=== PATIENT | female | born 1985 | race Caucasian/White ===

== ENCOUNTER 2017-08-19 17:52 | Emergency (ER) | payer OTHER ==
[2017-08-19] MEDS ORDERED: KETOROLAC 30 MG/ML INJ ONE (19:26)
[2017-08-19 19:55] LABS: Urine Blood NEGATIVE (NEG); Urine Glucose NEGATIVE (NEG); Urine Protein NEGATIVE (NEG); Urine Specific Gravity >1.030 (1.005-1.030)
[2017-08-19 20:02] LABS: Absolute Lymphocytes (CBC) 3.2 K/uL (0.7-4.9); Absolute Monocytes 0.7 K/uL (0.1-1.3); Absolute Neutrophil 5.6 K/uL (1.8-8.0); Basophils % 1.4 % (0-1.3); Eosinophils % 2.8 % (0-4.4); Hematocrit 38.6 % (36.0-45.0); Lymphocytes % 32.2 % (15.3-44.8); MCH 28.4 pg (27.0-35.0); MCV 83.3 fL (80-100); MPV 8.7 fL (7.6-11.3); Monocytes % 7.1 % (3.3-12.3); RBC Red Blood Cell Count 4.64 M/uL (3.86-4.86)
[2017-08-19 20:19] LABS: ALT/SGPT 28 U/L (12-78); AST/SGOT 17 U/L (15-37); Albumin 4.3 g/dL (3.4-5.0); Alkaline Phosphatase 74 U/L (45-117); BUN Blood Urea Nitrogen 12 mg/dL (7-18); Bicarbonate 25 mmol/L (21-32); Bilirubin Direct < 0.1 mg/dL (0-0.2); Bilirubin Total 0.3 mg/dL (0.2-1.0); Glucose Level 84 mg/dL (74-106); Magnesium 1.9 mg/dL (1.8-2.4); Potassium 3.6 mmol/L (3.5-5.1); Protein, Total 8.7 g/dL (6.4-8.2); Sodium Level 138 mmol/L (136-145)
--- NOTE | 2017-08-19 20:27 | RAD REPORT ---
EXAM DESCRIPTION: RAD - Chest Single View - 08/19/2017 7:53 pm CLINICAL HISTORY: Mid sternal chest pain COMPARISON: June 2015 TECHNIQUE: AP portable chest image was obtained 1941 hours . FINDINGS: Lungs are clear. Heart and vasculature are normal. No measurable pleural effusion and no p neumothorax. No gross bony abnormality seen. No acute aortic findings suspected. IMPRESSION: No acute cardiopulmonary process. No significant interval change.
--- NOTE | 2017-08-19 20:32 | EDPHYS ---
Physician Documentation [facility] Name: Ritu Bonilla Age: 31 yrs Sex: Female : 1985 Arrival Date: 08/19/2017 Time: 17:55 Bed 7 Private MD: ED Physician Endy Curran HPI: 08/19 19:15 This 31 yrs old Female presents to ER via Ambulatory with complaints of Arm jr8 Pain/chest pain. 19:15 The patient or guardian reports chest pain that is located primarily in the substernal jr8 area. The pain radiates to the left arm. Associated signs and symptoms: The patient has no apparent associated signs or symptoms. The chest pain is described as sharp. Duration: The patient or guardian reports multiple episodes, that are intermittent, that wax and wane. Modifying factors: The symptoms are alleviated by nothing. the symptoms are aggravated by movement, palpation of area. Severity of pain: At its worst the pain was moderate in the emergency department the pain has improved. The patient has not experienced similar symptoms in the past. The patient has not recently seen a physician. Historical: - Allergies: 18:11 No Known Allergies; sg - PMHx: 18:11 Hypothyroidism; sg - PSHx: 18:11 ; Cholecystectomy; sg - Immunization history:: Adult Immunizations up to date. - Social history:: Smoking status: Patient/guardian denies using tobacco. - Ebola Screening: : Patient negative for fever greater than or equal to 101.5 degrees Fahrenheit, and additional compatible Ebola Virus Disease symptoms Patient denies exposure to infectious person Patient denies travel to an Ebola-affected area in the 21 days before illness onset No symptoms or risks identified at this time. ROS: 19:15 Eyes: Negative for injury, pain, redness, and discharge, ENT: Negative for injury, jr8 pain, and discharge, Neck: Negative for injury, pain, and swelling, Respiratory: Negative for shortness of breath, cough, wheezing, and pleuritic chest pain, Abdomen/GI: Negative for abdominal pain, nausea, vomiting, diarrhea, and constipation, Back: Negative for injury and pain, Skin: Negative for injury, rash, and discoloration, Neuro: Negative for headache, weakness, numbness, tingling, and seizure. 19:15 Cardiovascular: Positive for chest pain, Negative for edema, orthopnea, palpitations, paroxysmal nocturnal dyspnea. 19:15 MS/extremity: Positive for pain, Negative for decreased range of motion, erythema, paresthesias, swelling, tenderness. Exam: 19:15 Eyes: Pupils equal round and reactive to light, extra-ocular motions intact. Lids and jr8 lashes normal. Conjunctiva and sclera are non-icteric and not injected. Cornea within normal limits. Periorbital areas with no swelling, redness, or edema. ENT: Nares patent. No nasal discharge, no septal abnormalities noted. Tympanic membranes are normal and external auditory canals are clear. Oropharynx with no redness, swelling, or masses, exudates, or evidence of obstruction, uvula midline. Mucous membranes moist. Neck: Trachea midline, no thyromegaly or masses palpated, and no cervical lymphadenopathy. Supple, full range of motion without nuchal rigidity, or vertebral point tenderness. No Meningismus. Cardiovascular: Regular rate and rhythm with a normal S1 and S2. No gallops, murmurs, or rubs. Normal PMI, no JVD. No pulse deficits. Respiratory: Lungs have equal breath sounds bilaterally, clear to auscultation and percussion. No rales, rhonchi or wheezes noted. No increased work of breathing, no retractions or nasal flaring. Abdomen/GI: Soft, non-tender, with normal bowel sounds. No distension or tympany. No guarding or rebound. No evidence of tenderness throughout. Skin: Warm, dry with normal turgor. Normal color with no rashes, no lesions, and no evidence of cellulitis. MS/ Extremity: Pulses equal, no cyanosis. Neurovascular intact. Full, normal range of motion. Neuro: Awake and alert, GCS 15, oriented to person, place, time, and situation. Cranial nerves II-XII grossly intact. Motor strength 5/5 in all extremities. Sensory grossly intact. Cerebellar exam normal. Normal gait. 19:15 Chest/axilla: Inspection: normal, Palpation: tenderness, that is moderate, of the anterior aspect of left upper chest. 19:15 Back: pain, that is moderate, of the left trapezius, ROM is normal, normal spinal alignment noted, When palpated on the trapezius of the left side. It would reproduce pain that she was feeling down arm. Vital Signs: 18:34 BP 138 / 99; Pulse 94; Resp 18; Temp 97.9(TE); Pulse Ox 100% on R/A; Weight 110.22 kg sg (R); Height 5 ft. 5 in. (165.10 cm); Pain 6/10; 20:34 BP 112 / 59; Pulse 84; Resp 18; Pulse Ox 100% on R/A; Pain 0/10; mg2 20:43 BP 113 / 59; Pulse 85; Resp 18; Pulse Ox 100% on R/A; Pain 0/10; mg2 18:34 Body Mass Index 40.44 (110.22 kg, 165.10 cm) MDM: 18:39 Patient medically screened. 8 20:31 Data reviewed: vital signs, nurses notes, lab test result(s), EKG, radiologic studies, 8 plain films, and as a result, I will discharge patient. Data interpreted: Pulse oximetry: on room air is 100 %. Interpretation: normal. Counseling: I had a detailed discussion with the patient and/or guardian regarding: the historical points, exam findings, and any diagnostic results supporting the discharge/admit diagnosis, lab results, radiology results, the need for outpatient follow up, a family practitioner, to return to the emergency department if symptoms worsen or persist or if there are any questions or concerns that arise at home. 08/19 19:07 Order name: Basic Metabolic Panel; Complete Time: 20:31 08/19 19:07 Order name: CBC with Diff; Complete Time: 20:05 08/19 19:07 Order name: LFT's; Complete Time: 20: 08/19 19:07 Order name: Magnesium; Complete Time: 20: 08/19 19:07 Order name: PT-INR; Complete Time: 20:05 08/19 19:07 Order name: Troponin (emerg Dept Use Only); Complete Time: 20:31 08/19 19:07 Order name: XRAY Chest (1 view); Complete Time: 20:31 08/19 19:07 Order name: EKG; Complete Time: 19:07 08/19 19:07 Order name: Cardiac monitoring; Complete Time: 19:47 08/19 19:07 Order name: EKG - Nurse/Tech 08/19 19:07 Order name: IV Saline Lock; Complete Time: 19:47 [facility] 08/19 19:49 Order name: Urine Dipstick--Ancillary (enter results); Complete Time: 20:05 [facility] 08/19 19:49 Order name: Urine --Ancillary (enter results); Complete Time: 20:05 [facility] 08/19 19:07 Order name: Labs collected and sent; Complete Time: 19:48 [facility] 08/19 19:07 Order name: O2 Per Protocol; Complete Time: 19:48 [facility] 08/19 19:07 Order name: O2 Sat Monitoring; Complete Time: 19:48 [facility] 08/19 19:07 Order name: Urine Dipstick-Ancillary (obtain specimen); Complete Time: 19:48 [facility] Administered Medications: 19:47 Drug: TORadol 30 mg Route: IVP; Site: left antecubital; mg2 20:46 Follow up: Response: No adverse reaction; Pain is decreased mg2 Disposition: 08/20 07:09 Co-signature as Attending Physician, Endy Curran MD. rn Disposition: 08/19/17 20:32 Discharged to Home. Impression: Muscle spasm, Other chest pain. - Condition is Stable. - Discharge Instructions: Nonspecific Chest Pain, Muscle Cramps and Spasms. - Prescriptions for Ibuprofen 800 mg Oral Tablet - take 1 tablet by ORAL route every 12 hours As needed take with food; 20 tablet. Cyclobenzaprine 10 mg Oral Tablet - take 1 tablet by ORAL route every 8 hours As needed; 30 tablet. - Medication Reconciliation Form, Thank You Letter, Antibiotic Education, Prescription Opioid Use form. - Follow up: Private Physician; When: 2 - 3 days; Reason: Recheck today's complaints, Continuance of care, Re-evaluation by your physician. - Problem is new. - Symptoms have improved. Signatures: Dispatcher [employer] EDMS Aleks Richard RN RN Endy Curran MD MD rn Roszak, Josh, PA PA jr8 Octavio Mcneil RN RN mg2 Corrections: (The following items were deleted from the chart) 08/19 19:26 19:15 Back: pain, that is moderate, of the left trapezius, ROM is normal, normal spinal jr8 alignment noted, jr8 20:45 20:32 08/19/2017 20:32 Discharged to Home. Impression: Muscle spasm; Other chest pain. mg2 Condition is Stable. Forms are Medication Reconciliation Form, Thank You Letter, Antibiotic Education, Prescription Opioid Use. Follow up: Private Physician; When: 2 - 3 days; Reason: Recheck today's complaints, Continuance of care, Re-evaluation by your physician. Problem is new. Symptoms have improved. jr8
--- NOTE | 2017-08-19 20:32 | ER ---
Nurse's Notes [facility] Name: Ritu Bonilla Age: 31 yrs Sex: Female : 1985 Arrival Date: 08/19/2017 Time: 17:55 Bed 7 Private MD: Diagnosis: Muscle spasm;Other chest pain Presentation: 08/19 18:32 Presenting complaint: Patient states: CP mid sternal that radiated into the L shoulder, sg and L hand tingling. Transition of care: patient was not received from another setting of care. Onset of symptoms was August 19, 2017. Risk Assessment: Do you want to hurt yourself or someone else? Patient reports no desire to harm self or others. Initial Sepsis Screen: Does the patient meet any 2 criteria? No. Patient's initial sepsis screen is negative. Does the patient have a suspected source of infection? No. Patient's initial sepsis screen is negative. Care prior to arrival: None. 18:32 Method Of Arrival: Ambulatory sg 18:32 Acuity: ROBIN 3 sg Historical: - Allergies: 18:11 No Known Allergies; sg - PMHx: 18:11 Hypothyroidism; sg - PSHx: 18:11 ; Cholecystectomy; sg - Immunization history:: Adult Immunizations up to date. - Social history:: Smoking status: Patient/guardian denies using tobacco. - Ebola Screening: : Patient negative for fever greater than or equal to 101.5 degrees Fahrenheit, and additional compatible Ebola Virus Disease symptoms Patient denies exposure to infectious person Patient denies travel to an Ebola-affected area in the 21 days before illness onset No symptoms or risks identified at this time. Screenin:24 Abuse screen: Denies threats or abuse. Denies injuries from another. Nutritional mg2 screening: No deficits noted. Tuberculosis screening: No symptoms or risk factors identified. Fall Risk IV access (20 points). Assessment: 20:01 General: Appears in no apparent distress. comfortable, Behavior is calm, cooperative. mg2 Pain: Complains of pain in left trapezius Pain does not radiate. Pain currently is 4 out of 10 on a pain scale. Quality of pain is described as aching, Pain began this morning Is intermittent. 20:24 Neuro: Level of Consciousness is awake, alert, obeys commands, Oriented to person, mg2 place, time, situation. Cardiovascular: Capillary refill < 3 seconds Patient's skin is warm and dry. Respiratory: Airway is patent Respiratory effort is even, unlabored, Respiratory pattern is regular, symmetrical. GI: No signs and/or symptoms were reported involving the gastrointestinal system. : No signs and/or symptoms were reported regarding the genitourinary system. EENT: No signs and/or symptoms were reported regarding the EENT system. Derm: Skin is intact, Skin is pink, warm \T\ dry. normal. Musculoskeletal: Circulation, motion, and sensation intact. Reports pain in left trapezius. Vital Signs: 18:34 BP 138 / 99; Pulse 94; Resp 18; Temp 97.9(TE); Pulse Ox 100% on R/A; Weight 110.22 kg sg (R); Height 5 ft. 5 in. (165.10 cm); Pain 6/10; 20:34 BP 112 / 59; Pulse 84; Resp 18; Pulse Ox 100% on R/A; Pain 0/10; mg2 20:43 BP 113 / 59; Pulse 85; Resp 18; Pulse Ox 100% on R/A; Pain 0/10; mg2 18:34 Body Mass Index 40.44 (110.22 kg, 165.10 cm) sg ED Course: 17:55 Patient arrived in ED. as 18:11 Arm band placed on. sg 18:33 Triage completed. sg 18:39 Darrick Muse PA is PHCP. jr8 18:39 Endy Curran MD is Attending Physician. jr8 19:23 Octavio Mcneil, ROGER is Primary Nurse. mg2 19:48 Inserted saline lock: 20 gauge in left antecubital area, using aseptic technique. Blood mg2 collected. 19:51 X-ray completed. Portable x-ray completed in exam room. Patient tolerated procedure jr1 well. 19:52 XRAY Chest (1 view) In Process Unspecified. EDMS 20:44 No provider procedures requiring assistance completed. IV discontinued, intact, mg2 bleeding controlled, No redness/swelling at site. Pressure dressing applied. 20:45 Patient has correct armband on for positive identification. mg2 Administered Medications: 19:47 Drug: TORadol 30 mg Route: IVP; Site: left antecubital; mg2 20:46 Follow up: Response: No adverse reaction; Pain is decreased mg2 Outcome: 20:32 Discharge ordered by . jr8 20:44 Discharged to home ambulatory, with friend. mg2 20:44 Condition: stable 20:44 Discharge instructions given to patient, friend, Instructed on discharge instructions, follow up and referral plans. medication usage, Demonstrated understanding of instructions, follow-up care, medications, Prescriptions given X 2. 20:45 Patient left the ED. mg2 Signatures: Dispatcher [employer] EDMS Aleks Richard RN RN sg Sarai Lindsay jr1 Amalia Mcfadden Josh, PA PA jr8 Octavio Mcneil RN RN mg2 Corrections: (The following items were deleted from the chart) 18:36 18:34 Pulse 18bpm; Resp 18bpm; Pulse Ox 100% RA; Temp 97.9F Temporal; 110.22 kg sg Reported; Height 5 ft. 5 in.; BMI: 40.4; Pain 6/10; sg 20:25 20:01 Pain: Complains of pain in left trapezius Pain does not radiate. Pain currently mg2 is 4 out of 10 on a pain scale. Quality of pain is described as aching, mg2
[2017-08-19 20:50] VITALS: TEMP 97.9; O2SAT 100
[2017-08-19 20:52] VITALS: BP 113/59
--- NOTE | 2017-08-20 11:16 | EKG ---
Test Date: 2017-08-19 Test Time: 19:51:44 Production Assistant: MG MEASUREMENT RESULTS: Intervals: Rate: 73 MN: 168 QRSD: 94 QT: 376 QTc: 414 [place]: P: 67 MN: 168 QRS: 37 T: 42 INTERPRETIVE STATEMENTS: Normal sinus rhythm Normal ECG Compared to ECG 07/12/2017 14:50:48 Sinus bradycardia no longer present Sinus arrhythmia no longer present Electronically Signed On 08-20-17 11:15:56 CDT by John Allred
== END 2017-08-19 20:45 | disposition home or self-care (01) ==
LOC: ER 17:52
DX: R07.89 Other chest pain (principal); E03.9 Hypothyroidism, unspecified; M62.838 Other muscle spasm
CPT/HCPCS: 36415; 71045; 80048; 80076; 81003; 81025; 83735; 84484; 85025; 85610; 93005; 96374; 99284

== ENCOUNTER 2017-10-28 18:33 | Emergency (ER) | payer OTHER ==
[2017-10-28] MEDS ORDERED: ONDANSETRON 4 MG/2 ML VIAL ONE (19:20)
[2017-10-28] MEDS ORDERED: KETOROLAC 30 MG/ML INJ ONE (19:20)
[2017-10-28 19:36] LABS: Urine Blood 2+ (NEG); Urine Glucose NEGATIVE (NEG); Urine Protein NEGATIVE (NEG); Urine Specific Gravity >1.030 (1.005-1.030)
[2017-10-28 19:38] LABS: Absolute Lymphocytes (CBC) 1.5 K/uL (0.7-4.9); Absolute Monocytes 0.7 K/uL (0.1-1.3); Absolute Neutrophil 11.4 K/uL (1.8-8.0); Basophils % 0.4 % (0-1.3); Eosinophils % 0.6 % (0-4.4); Hematocrit 37.8 % (36.0-45.0); Lymphocytes % 10.7 % (15.3-44.8); MCH 29.3 pg (27.0-35.0); MCV 86.6 fL (80-100); MPV 8.9 fL (7.6-11.3); Monocytes % 5.3 % (3.3-12.3); RBC Red Blood Cell Count 4.37 M/uL (3.86-4.86); Urine Bacteria <20 /HPF (<20); Urine RBC 20-50 /HPF (NONE SEEN)
[2017-10-28 19:39] LABS: Urine Amorphous Sediment 1+ /HPF (NONE SEEN); Urine Culture Reflex Order NOT NEEDED; Urine Mucus 1+ /HPF (NONE SEEN)
[2017-10-28 19:57] LABS: Albumin 4.2 g/dL (3.4-5.0); Bilirubin Direct 0.1 mg/dL (0-0.2); Bilirubin Total 0.4 mg/dL (0.2-1.0); Protein, Total 8.8 g/dL (6.4-8.2)
--- NOTE | 2017-10-28 19:58 | RAD REPORT ---
EXAM DESCRIPTION: CT - Stone Protocol - 10/28/2017 7:34 pm CLINICAL HISTORY: Flank pain. left flank pain COMPARISON: No comparisons TECHNIQUE: Axial images were obtained without oral or IV contrast. Lack of contrast limits solid org an and vascular assessment. The [id number] spans the entirety of the system partially obscuring uppermost abdomen and lung bases. Coronal reformatted images were obtained and reviewed. All CT scans are performed using dose optimization technique as appropriate and may include automated exposure control or mA/KV adjustment according to patient size. FINDINGS: The lower lung saab are clear. Imaged portions of the liver and spleen show no suspicious findings on non-contrast imaging.Cholecyst ectomy clips. The pancreas and adrenal glands are normal. No pathologic lymphadenopathy in the abdome n or pelvis. 5 mm stone (1372 HU) is present in the distal left ureter at the level of the left UVJ with mild left hydronephrosis. Small stone is present in the inferior calyx of the left kidney measuring 4 mm. No bowel obstruction, free air, free fluid or abscess. Normal appendix noted. No significant bony abnormality. IMPRESSION: 5 mm stone distal left ureter resulting in mild left hydronephrosis. Additional left inferior renal stone.
[2017-10-28] MEDS ORDERED: CEFTRIAXONE/SWI 1gm 1 GM/10 ML SYR ONE (20:30)
[2017-10-28] MEDS ORDERED: TAMSULOSIN 0.4 MG SR CAP ONE (20:30)
[2017-10-28] MEDS ORDERED: MAGNESIUM SULFATE 1 gm IVPB 1 GM/100 ML BAG IV ONE (20:30)
--- NOTE | 2017-10-28 20:38 | ER ---
Nurse's Notes [facility] Name: Ritu Bonilla Age: 31 yrs Sex: Female : 1985 Arrival Date: 10/28/2017 Time: 18:38 Bed 30 Private MD: Diagnosis: Calculus of kidney and ureter-Left Presentation: 10/28 18:58 Presenting complaint: EMS states: ABDOMINAL PAIN STARTED HOURS AGO. GIVEN ONDANSETRON rv IM. Transition of care: patient was not received from another setting of care. Onset of symptoms was October 28, 2017 at 16:00. Risk Assessment: Do you want to hurt yourself or someone else? Patient reports no desire to harm self or others. Initial Sepsis Screen: Does the patient meet any 2 criteria? No. Patient's initial sepsis screen is negative. Does the patient have a suspected source of infection? No. Patient's initial sepsis screen is negative. Care prior to arrival: None. 18:58 Method Of Arrival: EMS rv 18:58 Acuity: ROBIN 3 rv Historical: - Allergies: 19:00 No Known Allergies; rv - Home Meds: 19:00 levothyroxine oral [Active]; rv - PMHx: 19:00 Hypothyroidism; rv - PSHx: 19:00 Cholecystectomy; ; rv - Immunization history:: Adult Immunizations up to date. - Social history:: Smoking status: Patient uses tobacco products, smokes one-half pack cigarettes per day. - Ebola Screening: : Patient negative for fever greater than or equal to 101.5 degrees Fahrenheit, and additional compatible Ebola Virus Disease symptoms Patient denies exposure to infectious person Patient denies travel to an Ebola-affected area in the 21 days before illness onset. Screenin:21 Abuse screen: Denies threats or abuse. Denies injuries from another. Nutritional rv screening: No deficits noted. Tuberculosis screening: No symptoms or risk factors identified. Fall Risk None identified. Assessment: 19:20 General: Appears in no apparent distress. comfortable, Behavior is calm, cooperative. rv Pain: Complains of pain in abdomen. Neuro: Level of Consciousness is awake, alert, obeys commands, Oriented to person, place, time, situation. Cardiovascular: Capillary refill < 3 seconds. Respiratory: Airway is patent. GI: Bowel sounds present X 4 quads. Abd is soft and non tender X 4 quads. : No signs and/or symptoms were reported regarding the genitourinary system. EENT: No signs and/or symptoms were reported regarding the EENT system. Derm: Skin is intact. Vital Signs: 19:01 Weight 102.06 kg (R); Height 5 ft. 6 in. (167.64 cm) (R); rv 20:15 BP 119 / 75; Pulse 77; Resp 19; Pulse Ox 98% on R/A; jp3 20:40 BP 91 / 79; Pulse 86; Pulse Ox 98% on R/A; rv 21:01 BP 106 / 71; Pulse 91; Pulse Ox 100% on R/A; rv 19:01 Body Mass Index 36.32 (102.06 kg, 167.64 cm) rv ED Course: 18:38 Patient arrived in ED. rv 18:44 Eugenio Duncan PA is PHCP. cp 18:44 Tj Hoff MD is Attending Physician. cp 18:59 Triage completed. rv 19:06 Radiology exam delayed due to test not completed at this time. nj 19:13 Radiology exam delayed due to test not completed at this time. nj 19:20 Inserted saline lock: 20 gauge in left antecubital area, using aseptic technique. rv 19:21 Arm band placed on left wrist. rv 19:21 Patient has correct armband on for positive identification. Placed in gown. Bed in low rv position. Call light in reach. Side rails up X 1. Adult w/ patient. Pulse ox on. NIBP on. 19:33 CT Stone Protocol In Process Unspecified. EDMS 20:37 Bette Tai MD is Referral Physician. cp 21:02 No provider procedures requiring assistance completed. IV discontinued, bleeding rv controlled, No redness/swelling at site. Pressure dressing applied. Administered Medications: 19:19 Drug: Zofran 4 mg Route: IVP; Site: left antecubital; rv 21:05 Follow up: Response: No adverse reaction rv 19:19 Drug: TORadol 30 mg Route: IVP; Site: left antecubital; rv 21:04 Follow up: Response: No adverse reaction rv 20:38 Drug: Magnesium Sulfate 1 grams Route: IVPB; Infused Over: 30 mins; Site: left rv antecubital; 21:05 Follow up: Response: No adverse reaction; IV Status: Completed infusion rv 20:38 Drug: Flomax 0.4 mg Route: PO; rv 21:04 Follow up: Response: No adverse reaction rv 20:38 Drug: Rocephin 1 grams Route: IV; Rate: bolus; Site: left antecubital; rv 21:05 Follow up: IV Status: Completed infusion rv Outcome: 20:37 Discharge ordered by . cp 21:02 Discharged to home ambulatory. rv 21:02 Condition: good 21:02 Discharge instructions given to patient, Instructed on discharge instructions, follow up and referral plans. medication usage, Prescriptions given X 4. 21:10 Patient left the ED. rv Signatures: Dispatcher [employer] EDMS Eugenio Duncan PA PA cp Jordan, Nathan nj Vicente, Ronaldo, RN RN rv Jurgen Marquis jp3
--- NOTE | 2017-10-28 20:38 | EDPHYS ---
Physician Documentation [facility] Name: Ritu Bonilla Age: 31 yrs Sex: Female : 1985 Arrival Date: 10/28/2017 Time: 18:38 Bed 30 Private MD: ED Physician Tj Hoff HPI: 10/28 18:56 This 31 yrs old Female presents to ER via Unassigned with complaints of cp Abdominal Pain. 18:56 The patient presents with abdominal pain in the left lower quadrant. Onset: The cp symptoms/episode began/occurred suddenly, today. The symptoms radiate to the left flank. 18:56 Associated signs and symptoms: Pertinent negatives: anorexia, blood in stools, chest cp pain, constipation, diarrhea, fever, vaginal discharge, vomiting. Historical: - Allergies: 19:00 No Known Allergies; rv - Home Meds: 19:00 levothyroxine oral [Active]; rv - PMHx: 19:00 Hypothyroidism; rv - PSHx: 19:00 Cholecystectomy; ; rv - Immunization history:: Adult Immunizations up to date. - Social history:: Smoking status: Patient uses tobacco products, smokes one-half pack cigarettes per day. - Ebola Screening: : Patient negative for fever greater than or equal to 101.5 degrees Fahrenheit, and additional compatible Ebola Virus Disease symptoms Patient denies exposure to infectious person Patient denies travel to an Ebola-affected area in the 21 days before illness onset. ROS: 19:05 Constitutional: Negative for body aches, chills, fever, poor PO intake. cp 19:05 Eyes: Negative for injury, pain, redness, and discharge. cp 19:05 ENT: Negative for drainage from ear(s), ear pain, sore throat, difficulty swallowing, difficulty handling secretions. 19:05 Cardiovascular: Negative for chest pain, edema, palpitations. 19:05 Respiratory: Negative for cough, shortness of breath, wheezing. 19:05 Abdomen/GI: Positive for abdominal pain, Negative for vomiting, diarrhea, constipation, anorexia, black/tarry stool, rectal bleeding. 19:05 Back: Positive for radiated pain. 19:05 Skin: Negative for cellulitis, rash. 19:05 Neuro: Negative for altered mental status, headache, weakness. 19:05 All other systems are negative. Exam: 19:10 Constitutional: The patient appears in no acute distress, alert, awake, non-toxic, well cp developed, well nourished, uncomfortable. 19:10 Head/Face: Normocephalic, atraumatic. cp 19:10 Eyes: Periorbital structures: appear normal, Conjunctiva: normal, no exudate, no injection, Sclera: no appreciated abnormality, Lids and lashes: appear normal, bilaterally. 19:10 ENT: External ear(s): are unremarkable, Nose: is normal, Mouth: Lips: moist, Oral mucosa: pink and intact, moist, Posterior pharynx: is normal, airway is patent, no erythema, no exudate. 19:10 Neck: ROM/movement: is normal, is supple, without pain, no range of motions limitations, no nuchal rigidity. 19:10 Chest/axilla: Inspection: normal, Palpation: is normal, no crepitus, no tenderness. 19:10 Cardiovascular: Rate: normal, Rhythm: regular. 19:10 Respiratory: the patient does not display signs of respiratory distress, Respirations: normal, no use of accessory muscles, no retractions, no splinting, no tachypnea, labored breathing, is not present, Breath sounds: are clear throughout, no decreased breath sounds, no stridor, no wheezing. 19:10 Abdomen/GI: Inspection: abdomen appears normal, Bowel sounds: active, all quadrants, Palpation: soft, in all quadrants, moderate abdominal tenderness, in the posterior aspect of left lateral abdomen, anterior aspect of left lateral abdomen and left lower quadrant. 19:10 Back: CVA tenderness, is noted on the left. 19:10 Skin: cellulitis, is not appreciated, no rash present. 19:10 Neuro: Orientation: to person, place \T\ time. Mentation: lucid, able to follow commands, Motor: moves all fours, strength is normal, Sensation: no obvious gross deficits. Vital Signs: 19:01 Weight 102.06 kg (R); Height 5 ft. 6 in. (167.64 cm) (R); rv 20:15 BP 119 / 75; Pulse 77; Resp 19; Pulse Ox 98% on R/A; jp3 20:40 BP 91 / 79; Pulse 86; Pulse Ox 98% on R/A; rv 21:01 BP 106 / 71; Pulse 91; Pulse Ox 100% on R/A; rv 19:01 Body Mass Index 36.32 (102.06 kg, 167.64 cm) rv MDM: 18:45 Patient medically screened. cp 19:00 Differential diagnosis: bowel obstruction, gastritis, pancreatitis, Pyelonephritis, cp Ureterolithiasis, urinary tract infection. 20:35 Data reviewed: vital signs, nurses notes, lab test result(s), radiologic studies, CT cp scan. 20:35 Counseling: I had a detailed discussion with the patient and/or guardian regarding: the cp historical points, exam findings, and any diagnostic results supporting the discharge/admit diagnosis, lab results, radiology results, to return to the emergency department if symptoms worsen or persist or if there are any questions or concerns that arise at home. Response to treatment: the patient's symptoms have markedly improved after treatment, and as a result, I will discharge patient. 20:35 ED course: VSS. Pain improved with meds. Will discharge to home for continued cp monitoring. 10/28 18:54 Order name: Amylase, Serum; Complete Time: 20:06 cp 10/28 18:54 Order name: Basic Metabolic Panel; Complete Time: 20:06 cp 10/28 20:06 Interpretation: Normal except: GFR 73. cp 10/28 18:54 Order name: CBC with Diff; Complete Time: 20:06 cp 10/28 20:07 Interpretation: Normal except: WBC 13.7; MCV 86.6; EDILSON% 83.0; LYM% 10.7; NEUT A 11.4. cp 10/28 18:54 Order name: Creatinine for Radiology; Complete Time: 20:06 cp 10/28 18:54 Order name: Hepatic Function; Complete Time: 20:06 cp 10/28 18:54 Order name: Lipase; Complete Time: 20:06 cp 10/28 18:54 Order name: Urine Microscopic Only; Complete Time: 20:06 cp 10/28 20:07 Interpretation: Normal except: URBC 20-50; SQEPI 10-20. cp 10/28 18:54 Order name: CT Stone Protocol; Complete Time: 20:06 cp 10/28 19:17 Order name: Urine Dipstick--Ancillary (enter results); Complete Time: 20:06 mw2 10/28 19:17 Order name: Urine --Ancillary (enter results); Complete Time: 20:06 mw2 08/30 18:54 Order name: Urine Test (obtain specimen); Complete Time: 19:20 cp 10/28 18:54 Order name: IV Saline Lock; Complete Time: 19:20 cp 10/28 18:54 Order name: Labs collected and sent; Complete Time: 19:20 cp 10/28 18:54 Order name: Urine Dipstick-Ancillary (obtain specimen); Complete Time: 19:20 cp 10/28 20:08 Order name: PO challenge; Complete Time: 20:38 cp Administered Medications: 19:19 Drug: Zofran 4 mg Route: IVP; Site: left antecubital; rv 21:05 Follow up: Response: No adverse reaction rv 19:19 Drug: TORadol 30 mg Route: IVP; Site: left antecubital; rv 21:04 Follow up: Response: No adverse reaction rv 20:38 Drug: Magnesium Sulfate 1 grams Route: IVPB; Infused Over: 30 mins; Site: left rv antecubital; 21:05 Follow up: Response: No adverse reaction; IV Status: Completed infusion rv 20:38 Drug: Flomax 0.4 mg Route: PO; rv 21:04 Follow up: Response: No adverse reaction rv 20:38 Drug: Rocephin 1 grams Route: IV; Rate: bolus; Site: left antecubital; rv 21:05 Follow up: IV Status: Completed infusion rv Disposition: 10/29 12:34 Co-signature as Attending Physician, Tj Hoff MD I agree with the assessment and wa plan of care. Disposition: 10/28/17 20:37 Discharged to Home. Impression: Calculus of kidney and ureter - Left. - Condition is Stable. - Discharge Instructions: Kidney Stones. - Prescriptions for Tylenol- Codeine #3 300-30 mg Oral Tablet - take 2 tablets by ORAL route every 6 hours As needed; 20 tablet. Zofran 4 mg Oral Tablet - take 1 tablet by ORAL route every 12 hours As needed; 20 tablet. Flomax 0.4 mg Oral Capsule, Sust. Release 24 hr - take 1 capsule by ORAL route once daily As needed 1/2 hour following the same meal each day; 7 capsule. Cipro 500 mg Oral Tablet - take 1 tablet by ORAL route every 12 hours for 7 days; 14 tablet. - Medication Reconciliation Form, Thank You Letter, Antibiotic Education, Prescription Opioid Use form. - Follow up: Bette Tai MD; When: 2 - 3 days; Reason: pain continues. - Problem is new. - Symptoms have improved. Signatures: Dispatcher [employer] EDMS Eugenio Duncan PA PA cp Tj Hoff MD MD wa Vicente, Ronaldo, RN RN rv Corrections: (The following items were deleted from the chart) 10/28 21:10 20:37 10/28/2017 20:37 Discharged to Home. Impression: Calculus of kidney and ureter - rv Left. Condition is Stable. Forms are Medication Reconciliation Form, Thank You Letter, Antibiotic Education, Prescription Opioid Use. Follow up: Bette Tai; When: 2 - 3 days; Reason: pain continues. Problem is new. Symptoms have improved. cp
[2017-10-28 21:27] VITALS: BP 106/71; O2SAT 100
== END 2017-10-28 21:10 | disposition home or self-care (01) ==
LOC: ER 18:33
DX: N20.2 Calculus of kidney with calculus of ureter (principal); E03.9 Hypothyroidism, unspecified; F17.210 Nicotine dependence, cigarettes, uncomplicated
CPT/HCPCS: 36415; 74176; 76377; 80048; 80076; 81003; 81015; 81025; 82150; 83690; 85025; 96365; 96368; 96375; 99284; J0696; J2405; J3475

== ENCOUNTER 2017-11-01 18:07 | Emergency (ER) | payer OTHER ==
[2017-11-01 18:33] LABS: Urine Blood 1+ (NEG); Urine Glucose NEGATIVE (NEG); Urine Protein NEGATIVE (NEG)
[2017-11-01 18:42] LABS: Urine Bacteria <20 /HPF (<20); Urine Culture Reflex Order NOT NEEDED; Urine Mucus 1+ /HPF (NONE SEEN)
--- NOTE | 2017-11-01 18:52 | RAD REPORT ---
EXAM DESCRIPTION: CT - Stone Protocol - 11/01/2017 6:36 pm CLINICAL HISTORY: Abdominal pain. Left lower quadrant pain COMPARISON: Stone Protocol dated 10/28/2017 TECHNIQUE: Computed axial tomography of the abdomen pelvis was obtained without oral or IV contrast. Lack of IV and oral contrast limits evaluation of solid organs, bowel, and vessels. Coronal reformat selwyn images were obtained and reviewed. All CT scans are performed using dose optimization technique as appropriate and may include automated exposure control or mA/KV adjustment according to patient size. FINDINGS: The 6 millimeter calculus has migrated distally into the left ureteral vesicle junction. M ild to moderate left hydronephrosis with perirenal stranding is seen. A 4 millimeter left renal calcu sabine is noted The liver, spleen, pancreas and adrenals appear grossly normal There is no evidence of diverticulitis. The appendix appears normal IMPRESSION: 6 millimeter calculus left ureterovesical junction resulting in mild to moderate hydrone phrosis
[2017-11-01 18:55] LABS: Absolute Lymphocytes (CBC) 2.1 K/uL (0.7-4.9); Absolute Monocytes 0.9 K/uL (0.1-1.3); Absolute Neutrophil 6.3 K/uL (1.8-8.0); Basophils % 0.5 % (0-1.3); Eosinophils % 1.8 % (0-4.4); Hematocrit 36.3 % (36.0-45.0); Lymphocytes % 22.2 % (15.3-44.8); MCH 29.4 pg (27.0-35.0); MCV 86.7 fL (80-100); MPV 8.8 fL (7.6-11.3); Monocytes % 9.7 % (3.3-12.3); RBC Red Blood Cell Count 4.19 M/uL (3.86-4.86)
[2017-11-01] MEDS ORDERED: NA CHLORIDE 0.9% 1,000 ML ONE ×2 (18:55→19:22)
[2017-11-01] MEDS ORDERED: ONDANSETRON 4 MG/2 ML VIAL ONE (18:59)
[2017-11-01] MEDS ORDERED: MORPHINE 4 MG/ML SYR ONE (18:59)
[2017-11-01] MEDS ORDERED: KETOROLAC 30 MG/ML INJ ONE (18:59)
[2017-11-01] MEDS ORDERED: CEFTRIAXONE/SWI 1gm 1 GM/10 ML SYR ONE (19:08)
[2017-11-01] MEDS ORDERED: TAMSULOSIN 0.4 MG SR CAP ONE (19:08)
[2017-11-01 19:11] LABS: ALT/SGPT 115 U/L (12-78); AST/SGOT 135 U/L (15-37); Albumin 3.7 g/dL (3.4-5.0); Alkaline Phosphatase 128 U/L (45-117); Amylase Level 48 U/L (25-115); BUN Blood Urea Nitrogen 12 mg/dL (7-18); Bicarbonate 26 mmol/L (21-32); Bilirubin Direct < 0.1 mg/dL (0-0.2); Bilirubin Total 0.3 mg/dL (0.2-1.0); Glucose Level 100 mg/dL (74-106); Lipase 123 U/L (73-393); Potassium 3.7 mmol/L (3.5-5.1); Sodium Level 141 mmol/L (136-145)
--- NOTE | 2017-11-01 20:04 | ER ---
Nurse's Notes [facility] Name: Ritu Bonilla Age: 31 yrs Sex: Female : 1985 Arrival Date: 11/01/2017 Time: 18:10 Bed 18 Private MD: None, None Diagnosis: Hydronephrosis with renal and ureteral calculous obstruction-6 mm UVJ Presentation: 11/01 18:15 Presenting complaint: Patient states: i came in and was diagnosed with kidney hj stone and was told to do follow with a urologist but today is holiday and im still hurting, pain is 9/10; L lower flank area; denies nausea and vomiting;. Transition of care: patient was not received from another setting of care. Onset of symptoms was November 01, 2017. Risk Assessment: Do you want to hurt yourself or someone else? Patient reports no desire to harm self or others. Initial Sepsis Screen: Does the patient meet any 2 criteria? No. Patient's initial sepsis screen is negative. Does the patient have a suspected source of infection? No. Patient's initial sepsis screen is negative. Care prior to arrival: None. 18:15 Method Of Arrival: Ambulatory 18:15 Acuity: ROBIN 3 hj Triage Assessment: 18:17 General: Appears in no apparent distress. uncomfortable, Behavior is calm, cooperative, hj appropriate for age. Pain: Complains of pain in left low back. GI: Reports nausea. SPECIAL DIET COOK: 18:18 LMP 09/29/2017 Historical: - Allergies: 18:17 No Known Drug Allergies; hj - Home Meds: 18:17 levothyroxine oral [Active]; hj - PMHx: 18:17 Hypothyroidism; hj - PSHx: 18:17 Cholecystectomy; ; hj - Immunization history:: Adult Immunizations unknown. - Social history:: Smoking status: Patient uses tobacco products, cigars, Patient/guardian denies using alcohol. - Ebola Screening: : Patient negative for fever greater than or equal to 101.5 degrees Fahrenheit, and additional compatible Ebola Virus Disease symptoms Patient denies exposure to infectious person Patient denies travel to an Ebola-affected area in the 21 days before illness onset. - Family history:: not pertinent. Screenin:17 Abuse screen: Denies threats or abuse. Denies injuries from another. Nutritional hj screening: No deficits noted. Tuberculosis screening: No symptoms or risk factors identified. Fall Risk None identified. Assessment: 18:18 GI: Bowel sounds present X 4 quads. Abd is soft Abd is non tender. hj 18:39 General: Appears in no apparent distress. comfortable, Behavior is calm, cooperative. rv Pain: Complains of pain in back. Neuro: Level of Consciousness is awake, alert, obeys commands, Oriented to person, place, time, situation. Cardiovascular: Capillary refill < 3 seconds. Respiratory: Airway is patent. : No signs and/or symptoms were reported regarding the genitourinary system. EENT: No signs and/or symptoms were reported regarding the EENT system. Derm: Skin is intact. 19:00 Reassessment: Patient appears in no apparent distress at this time. Patient and/or rv family updated on plan of care and expected duration. Pain level reassessed. Patient is alert, oriented x 3, equal unlabored respirations, skin warm/dry/pink. AWAITING CT SCAN RESULT. 20:23 Reassessment: Patient appears in no apparent distress at this time. Patient and/or rv family updated on plan of care and expected duration. Pain level reassessed. Patient is alert, oriented x 3, equal unlabored respirations, skin warm/dry/pink. ONGOING SECOND LITER OF NS BOLUS BEFORE DISCHARGE. Vital Signs: 18:18 BP 119 / 90; Pulse 96; Resp 18; Temp 98.4(TE); Pulse Ox 98% on R/A; Weight 102.06 kg; hj Height 5 ft. 6 in. (167.64 cm); Pain 9/10; 19:00 BP 120 / 95; Pulse 65; Pulse Ox 97% on R/A; rv 20:23 BP 91 / 48; Pulse 61; Pulse Ox 100% on R/A; rv 18:18 Body Mass Index 36.32 (102.06 kg, 167.64 cm) ED Course: 18:10 Patient arrived in ED. sb2 18:10 None, None is Private Physician. sb2 18:16 Triage completed. hj 18:17 Arm band placed on right wrist. hj 18:21 Eugenio Fonseca MD is Attending Physician. wayne 18:[address] sj 18:36 CT completed. Patient tolerated procedure well. Patient moved back from CT. vm2 18:38 CT Stone Protocol In Process Unspecified. EDMS 18:39 Patient has correct armband on for positive identification. Bed in low position. Call rv light in reach. Side rails up X 1. Pulse ox on. NIBP on. 19:11 Bette Tai MD is Referral Physician. wayne 19:30 Inserted saline lock: 20 gauge in left antecubital area, using aseptic technique. rv 21:11 No provider procedures requiring assistance completed. IV discontinued, bleeding rv controlled, No redness/swelling at site. Pressure dressing applied. Administered Medications: 18:37 Drug: NS 0.9% 1000 ml Route: IV; Rate: 1 bolus; Site: left antecubital; rv 19:18 Follow up: IV Status: Completed infusion rv 18:58 Drug: Zofran 4 mg Route: IVP; Site: left antecubital; rv 19:18 Follow up: Response: No adverse reaction rv 18:59 Drug: TORadol 30 mg Route: IVP; Site: left antecubital; rv 19:18 Follow up: Response: No adverse reaction rv 18:59 Drug: morphine 4 mg Route: IVP; Site: left antecubital; rv 19:18 Follow up: Response: No adverse reaction rv 19:15 Drug: Rocephin - (cefTRIAXone) 1 grams Route: IVPB; Infused Over: 30 mins; Site: left rv antecubital; 19:18 Follow up: IV Status: Completed infusion rv 19:27 Not Given (PATIENT ALREADY TOOK ONE AT HOME): Flomax 0.4 mg PO once rv 19:27 Drug: NS 0.9% 1000 ml Route: IV; Rate: 1 bolus; Site: left antecubital; rv 21:10 Follow up: IV Status: Completed infusion rv Outcome: 19:12 Discharge ordered by . wayne 21:12 Discharged to home ambulatory. rv 21:12 Condition: good 21:12 Discharge instructions given to patient, Instructed on discharge instructions, follow up and referral plans. medication usage, Demonstrated understanding of instructions, follow-up care, medications, Prescriptions given X 4. 21:12 Patient left the ED. rv Signatures: Dispatcher [employer] EDMS Eugenio Fonseca MD MD cha Jones, Susan sj Joaquin, Henry, RN RN hj McGuire, Victoria 2 Sharon Truong 2 Damon, Bharat, RN RN rv Corrections: (The following items were deleted from the chart) 18:20 18:18 Pulse 96bpm; Resp 18bpm; Pulse Ox 98% RA; Temp 98.4F Temporal; 102.06 kg; Height hj 5 ft. 6 in.; BMI: 36.3; Pain 9/10; hj 19:27 19:14 Flomax 0.4 mg PO rv rv 21:12 19:30 No provider procedures requiring assistance completed. rv rv 21:12 19:30 IV discontinued, bleeding controlled, No redness/swelling at site. Pressure rv dressing applied, rv
--- NOTE | 2017-11-01 20:04 | EDPHYS ---
Physician Documentation [facility] Name: Ritu Bonilla Age: 31 yrs Sex: Female : 1985 Arrival Date: 11/01/2017 Time: 18:10 Bed 18 Private MD: None, None ED Physician Eugenio Fonseca HPI: 11/01 18:39 This 31 yrs old Female presents to ER via Ambulatory with complaints of wayne Possible Kidney Stone. 18:39 The patient presents with pain that is acute, with no known mechanism of injury. The wayne symptoms are located in the left low back and left mid back. Onset: The symptoms/episode began/occurred 4 day(s) ago. The pain does not radiate. Associated signs and symptoms: The patient has no apparent associated signs or symptoms. Modifying factors: The patient symptoms are alleviated by nothing. Severity of symptoms: At their worst the symptoms were mild, moderate, in the emergency department the symptoms are unchanged. The patient has experienced similar episodes in the past, several times. 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 - Social history:: Smoking status: Patient uses tobacco products, cigars, Patient/guardian denies using alcohol. - Ebola Screening: : Patient negative for fever greater than or equal to 101.5 degrees Fahrenheit, and additional compatible Ebola Virus Disease symptoms Patient denies exposure to infectious person Patient denies travel to an Ebola-affected area in the 21 days before illness onset. - Family history:: not pertinent. ROS: 18:39 Constitutional: Negative for fever, chills, and weight loss, Eyes: Negative for injury, wayne pain, redness, and discharge, ENT: Negative for injury, pain, and discharge, Neck: Negative for injury, pain, and swelling, Cardiovascular: Negative for chest pain, palpitations, and edema, Respiratory: Negative for shortness of breath, cough, wheezing, and pleuritic chest pain, Abdomen/GI: Negative for abdominal pain, nausea, vomiting, diarrhea, and constipation, : Negative for injury, bleeding, discharge, and swelling, MS/Extremity: Negative for injury and deformity, Skin: Negative for injury, rash, and discoloration, Neuro: Negative for headache, weakness, numbness, tingling, and seizure, Psych: Negative for depression, anxiety, suicide ideation, homicidal ideation, and hallucinations, Allergy/Immunology: Negative for hives, rash, and allergies, Endocrine: Negative for neck swelling, polydipsia, polyuria, polyphagia, and marked weight changes, Hematologic/Lymphatic: Negative for swollen nodes, abnormal bleeding, and unusual bruising. 18:39 Back: Positive for flank pain, on the left. Exam: 18:39 Constitutional: This is a well developed, well nourished patient who is awake, alert, wayne and in no acute distress. Head/Face: Normocephalic, atraumatic. Eyes: Pupils equal round and reactive to light, extra-ocular motions intact. Lids and lashes normal. Conjunctiva and sclera are non-icteric and not injected. Cornea within normal limits. Periorbital areas with no swelling, redness, or edema. ENT: Nares patent. No nasal discharge, no septal abnormalities noted. Tympanic membranes are normal and external auditory canals are clear. Oropharynx with no redness, swelling, or masses, exudates, or evidence of obstruction, uvula midline. Mucous membranes moist. Neck: Trachea midline, no thyromegaly or masses palpated, and no cervical lymphadenopathy. Supple, full range of motion without nuchal rigidity, or vertebral point tenderness. No Meningismus. Chest/axilla: Normal chest wall appearance and motion. Nontender with no deformity. No lesions are appreciated. Cardiovascular: Regular rate and rhythm with a normal S1 and S2. No gallops, murmurs, or rubs. Normal PMI, no JVD. No pulse deficits. Respiratory: Lungs have equal breath sounds bilaterally, clear to auscultation and percussion. No rales, rhonchi or wheezes noted. No increased work of breathing, no retractions or nasal flaring. Abdomen/GI: Soft, non-tender, with normal bowel sounds. No distension or tympany. No guarding or rebound. No evidence of tenderness throughout. Female : Normal external genitalia. Skin: Warm, dry with normal turgor. Normal color with no rashes, no lesions, and no evidence of cellulitis. MS/ Extremity: Pulses equal, no cyanosis. Neurovascular intact. Full, normal range of motion. Neuro: Awake and alert, GCS 15, oriented to person, place, time, and situation. Cranial nerves II-XII grossly intact. Motor strength 5/5 in all extremities. Sensory grossly intact. Cerebellar exam normal. Normal gait. Psych: Awake, alert, with orientation to person, place and time. Behavior, mood, and affect are within normal limits. 18:39 Back: pain, that is moderate, ROM is normal, normal spinal alignment noted, CVA tenderness, is absent. Vital Signs: 18:18 BP 119 / 90; Pulse 96; Resp 18; Temp 98.4(TE); Pulse Ox 98% on R/A; Weight 102.06 kg; hj Height 5 ft. 6 in. (167.64 cm); Pain 9/10; 19:00 BP 120 / 95; Pulse 65; Pulse Ox 97% on R/A; rv 20:23 BP 91 / 48; Pulse 61; Pulse Ox 100% on R/A; rv 18:18 Body Mass Index 36.32 (102.06 kg, 167.64 cm) MDM: 18:21 Patient medically screened. [facility] 18:39 Data reviewed: vital signs, nurses notes, lab test result(s), CBC, electrolytes, [facility] urinalysis, radiologic studies, CT scan. 11/01 18:24 Order name: Amylase, Serum [facility] 11/01 18:24 Order name: Basic Metabolic Panel [facility] 11/01 18:24 Order name: CBC with Diff; Complete Time: 19:00 [facility] 11/01 18:24 Order name: Creatinine for Radiology [facility] 11/01 18:24 Order name: Hepatic Function [facility] 11/01 18:24 Order name: Lipase [facility] 11/01 18:24 Order name: Urine Microscopic Only; Complete Time: 18:48 [facility] 11/01 18:31 Order name: Urine Dipstick--Ancillary (enter results); Complete Time: 18:48 [facility] 11/01 18:31 Order name: Urine --Ancillary (enter results); Complete Time: 18:48 [facility] 11/01 18:24 Order name: CT Stone Protocol; Complete Time: 18:53 [facility] 11/01 18:24 Order name: Urine Test (obtain specimen); Complete Time: 18:30 [facility] 11/01 18:24 Order name: IV Saline Lock; Complete Time: 18:36 [facility] 11/01 18:24 Order name: Labs collected and sent; Complete Time: 18:36 [facility] 11/01 18:24 Order name: Urine Dipstick-Ancillary (obtain specimen); Complete Time: 18:30 [facility] Administered Medications: 18:37 Drug: NS 0.9% 1000 ml Route: IV; Rate: 1 bolus; Site: left antecubital; rv 19:18 Follow up: IV Status: Completed infusion rv 18:58 Drug: Zofran 4 mg Route: IVP; Site: left antecubital; rv 19:18 Follow up: Response: No adverse reaction rv 18:59 Drug: TORadol 30 mg Route: IVP; Site: left antecubital; rv 19:18 Follow up: Response: No adverse reaction rv 18:59 Drug: morphine 4 mg Route: IVP; Site: left antecubital; rv 19:18 Follow up: Response: No adverse reaction rv 19:15 Drug: Rocephin - (cefTRIAXone) 1 grams Route: IVPB; Infused Over: 30 mins; Site: left rv antecubital; 19:18 Follow up: IV Status: Completed infusion rv 19:27 Not Given (PATIENT ALREADY TOOK ONE AT HOME): Flomax 0.4 mg PO once rv 19:27 Drug: NS 0.9% 1000 ml Route: IV; Rate: 1 bolus; Site: left antecubital; rv 21:10 Follow up: IV Status: Completed infusion rv Disposition: 11/01/17 19:12 Discharged to Home. Impression: Hydronephrosis with renal and ureteral calculous obstruction - 6 mm UVJ. - Condition is Stable. - Discharge Instructions: Kidney Stones, Kidney Stones, Wluu-iu-[id number], Hydronephrosis, Dietary Guidelines to Help Prevent Kidney Stones. - Prescriptions for Tylenol- Codeine #3 300-30 mg Oral Tablet - take 2 tablet by ORAL route every 6 hours As needed; 30 tablet. Flomax 0.4 mg Oral Capsule, Sust. Release 24 hr - take 1 capsule by ORAL route once daily 1/2 hour following the same meal each day; 14 capsule. Cipro 500 mg Oral Tablet - take 1 tablet by ORAL route every 12 hours for 7 days; 14 tablet. ketorolac 10 mg Oral tablet - take 1 tablet by ORAL route every 6 hours not to exceed 40 mg in 24hrs; 15 tablet. Zofran 4 mg Oral Tablet - take 1 tablet by ORAL route every 12 hours As needed; 20 tablet. - Medication Reconciliation Form, Thank You Letter, Antibiotic Education, Prescription Opioid Use form. - Follow up: Private Physician; When: 2 - 3 days; Reason: Recheck today's complaints, Continuance of care, Re-evaluation by your physician. Follow up: Bette Tai; When: 2 - 3 days; Reason: Recheck today's complaints, Re-evaluation by your physician. - Problem is new. - Symptoms have improved. Signatures: Dispatcher [employer] EDMS Eugenio Fonseca MD MD cha Joaquin, Henry, RN RN hj Bharat Jose RN RN rv Corrections: (The following items were deleted from the chart) 21:12 19:12 11/01/2017 19:12 Discharged to Home. Impression: Hydronephrosis with renal and rv ureteral calculous obstruction - 6 mm UVJ. Condition is Stable. Discharge Instructions: Kidney Stones, Kidney Stones, Jdtv-by-Azxs, Hydronephrosis, Dietary Guidelines to Help Prevent Kidney Stones. Prescriptions for Tylenol-Codeine #3 300-30 mg Oral Tablet - take 2 tablet by ORAL route every 6 hours As needed; 30 tablet, Flomax 0.4 mg Oral Capsule, Sust. Release 24 hr - take 1 capsule by ORAL route once daily 1/2 hour following the same meal each day; 14 capsule, Cipro 500 mg Oral Tablet - take 1 tablet by ORAL route every 12 hours for 7 days; 14 tablet, ketorolac 10 mg Oral tablet - take 1 tablet by ORAL route every 6 hours not to exceed 40 mg in 24hrs; 15 tablet, Zofran 4 mg Oral Tablet - take 1 tablet by ORAL route every 12 hours As needed; 20 tablet. and Forms are Medication Reconciliation Form, Thank You Letter, Antibiotic Education, Prescription Opioid Use. Follow up: Private Physician; When: 2 - 3 days; Reason: Recheck today's complaints, Continuance of care, Re-evaluation by your physician. Follow up: Bette Tai; When: 2 - 3 days; Reason: Recheck today's complaints, Re-evaluation by your physician. Problem is new. Symptoms have improved. wayne
[2017-11-01 21:20] VITALS: TEMP 98.4
[2017-11-01 21:26] VITALS: BP 91/48; O2SAT 100
== END 2017-11-01 21:12 | disposition home or self-care (01) ==
LOC: ER 18:07
DX: N13.2 Hydronephrosis with renal and ureteral calculous obstruction (principal); E03.9 Hypothyroidism, unspecified
CPT/HCPCS: 36415; 74176; 76377; 80048; 80076; 81003; 81015; 81025; 82150; 83690; 85025; 96361; 96374; 96375; 99284; J0696; J2405; J7030

== ENCOUNTER 2018-02-14 18:28 | Emergency (ER) | payer OTHER ==
--- OUTSIDE RECORDS SUMMARY | 2018-02-14 18:30 | XMS REPORT ---
:1985 [facility] Address [address] [place] [address] Dr. Sy [address] [place] [id number] Care Team Providers Name Role Phone Unavailable Unavailable Unavailable Problems This patient has no known problems. Allergies, Adverse Reactions, Alerts This patient has no known allergies or adverse reactions. Medications This patient has no known medications.
--- NOTE | 2018-02-14 19:46 | ER ---
Nurse's Notes [facility] Name: Ritu Bonilla Age: 32 yrs Sex: Female : 1985 Arrival Date: 02/14/2018 Time: 18:32 Bed 28 Private MD: Diagnosis: Streptococcal pharyngitis Presentation: 02/14 18:40 Presenting complaint: Patient states: at work, i started having a bad headache and hj stiffness on the back of my neck and shoulder; denies N/V; denies fever;. Transition of care: patient was not received from another setting of care. Onset of symptoms was February 14, 2018. Risk Assessment: Do you want to hurt yourself or someone else? Patient reports no desire to harm self or others. Initial Sepsis Screen: Does the patient meet any 2 criteria? No. Patient's initial sepsis screen is negative. Does the patient have a suspected source of infection? No. Patient's initial sepsis screen is negative. Care prior to arrival: None. 18:40 Method Of Arrival: Ambulatory 18:40 Acuity: ROBIN 3 hj Triage Assessment: 18:42 Headache History: Denies prior headaches. General: Appears in no apparent distress. hj uncomfortable, Behavior is calm, cooperative, appropriate for age. Pain: Complains of pain in head Pain currently is 8 out of 10 on a pain scale. Pain began 4 hours ago. Also complains of. Neuro: Level of Consciousness is awake, alert, obeys commands, Oriented to person, place, time, situation, Appropriate for age. 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 - Social history:: Smoking status: Patient/guardian denies using tobacco, Patient/guardian denies using alcohol. - Ebola Screening: : Patient negative for fever greater than or equal to 101.5 degrees Fahrenheit, and additional compatible Ebola Virus Disease symptoms Patient denies exposure to infectious person Patient denies travel to an Ebola-affected area in the 21 days before illness onset. Screenin:42 Abuse screen: Denies threats or abuse. Denies injuries from another. Nutritional hj screening: No deficits noted. Tuberculosis screening: No symptoms or risk factors identified. Fall Risk None identified. Assessment: 19:12 General: Appears in no apparent distress. Behavior is calm, appropriate for age. Pain: la1 Complains of pain in sore throat and facial pain. Neuro: Level of Consciousness is awake, alert, obeys commands, Oriented to person, place, time, situation, Wellness Nurse Rn are equal bilaterally Moves all extremities. Full function Gait is steady, Speech is normal, Facial symmetry appears normal, Pupils are PERRLA. Cardiovascular: Capillary refill < 3 seconds Patient's skin is warm and dry. Respiratory: Airway is patent Respiratory effort is even, unlabored, Respiratory pattern is regular. GI: No signs and/or symptoms were reported involving the gastrointestinal system. : No signs and/or symptoms were reported regarding the genitourinary system. Vital Signs: 18:43 BP 109 / 72; Pulse 86; Resp 18; Temp 97.0(TE); Pulse Ox 99% on R/A; Weight 92.99 kg; hj Height 5 ft. 5 in. (165.10 cm); Pain 8/10; 18:43 Body Mass Index 34.11 (92.99 kg, 165.10 cm) hj ED Course: 18:32 Patient arrived in ED. mr 18:41 Triage completed. hj 18:43 Arm band placed on right wrist. hj 18:44 Patient has correct armband on for positive identification. Placed in gown. Bed in low hj position. Call light in reach. Side rails up X 1. 18:51 Hussein Yan RN is Primary Nurse. la1 18:59 Patricia Francis FNP-C is PHCP. kb 18:59 Sammy Gamez MD is Attending Physician. kb 19:20 Strep Sent. jb5 19:20 Flu Sent. jb5 19:53 No provider procedures requiring assistance completed. Patient did not have IV access la1 during this emergency room visit. Administered Medications: 19:52 Drug: Augmentin 875 mg Route: PO; la1 19:53 Follow up: Response: Medication administered at discharge. la1 Outcome: 19:45 Discharge ordered by . kb 19:53 Discharged to home ambulatory. la1 19:53 Condition: stable 19:53 Discharge instructions given to patient, Instructed on discharge instructions, follow up and referral plans. medication usage, Demonstrated understanding of instructions, follow-up care, medications, Prescriptions given X 1. 19:53 Patient left the ED. la1 Signatures: Patricia Francis, ELECTRICIAN RADIO-C ELECTRICIAN RADIO-Sherlyn Octavia Magallon, Hussein RN RN la1 Jose Pryor RN RN Sarai Sheldon jb5 Corrections: (The following items were deleted from the chart) 18:44 18:43 Pulse 86bpm; Resp 18bpm; Pulse Ox 99% RA; Temp 97.0F Temporal; 92.99 kg; Height 5 hj ft. 5 in.; BMI: 34.1; Pain 8/10; hj
--- NOTE | 2018-02-14 19:46 | EDPHYS ---
Physician Documentation [facility] Name: Ritu Bonilla Age: 32 yrs Sex: Female : 1985 Arrival Date: 02/14/2018 Time: 18:32 Bed 28 Private MD: ED Physician Sammy Gamez HPI: 02/14 19:43 This 32 yrs old Female presents to ER via Ambulatory with complaints of kb Headache, Stiff Neck. 19:43 The patient presents with sore throat. The patient describes throat pain as constant. kb Onset: The symptoms/episode began/occurred this morning. Severity of symptoms: At their worst the symptoms were moderate, in the emergency department the symptoms are unchanged. Modifying factors: The symptoms are alleviated by nothing, the symptoms are aggravated by swallowing, Patient's oral intake status: good Denies contact with similarly ill indivduals. Associated signs and symptoms: Pertinent positives: headache, Sore throat Pertinent negatives chest pain, chills, cough, diarrhea, dysphagia, earache, fever, flu-like symptoms, nausea, rhinorrhea, shortness of breath, vomiting. The patient has not experienced similar symptoms in the past. The patient has not recently seen a physician. Pt reports sore throat since this morning, headache and neck pain since this afternoon. 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 - Social history:: Smoking status: Patient/guardian denies using tobacco, Patient/guardian denies using alcohol. - Ebola Screening: : Patient negative for fever greater than or equal to 101.5 degrees Fahrenheit, and additional compatible Ebola Virus Disease symptoms Patient denies exposure to infectious person Patient denies travel to an Ebola-affected area in the 21 days before illness onset. ROS: 19:43 Constitutional: Negative for fever, chills, and weight loss, Cardiovascular: Negative kb for chest pain, palpitations, and edema, Respiratory: Negative for shortness of breath, cough, wheezing, and pleuritic chest pain, Abdomen/GI: Negative for abdominal pain, nausea, vomiting, diarrhea, and constipation, Back: Negative for injury and pain, : Negative for injury, bleeding, discharge, and swelling, MS/Extremity: Negative for injury and deformity, Skin: Negative for injury, rash, and discoloration. 19:43 ENT: Positive for sore throat. 19:43 Neck: Positive for pain with movement, pain at rest. 19:43 Neuro: Positive for headache. Exam: 19:43 Constitutional: This is a well developed, well nourished patient who is awake, alert, kb and in no acute distress. Head/Face: Normocephalic, atraumatic. Eyes: Pupils equal round and reactive to light, extra-ocular motions intact. Lids and lashes normal. Conjunctiva and sclera are non-icteric and not injected. Cornea within normal limits. Periorbital areas with no swelling, redness, or edema. Chest/axilla: Normal chest wall appearance and motion. Nontender with no deformity. No lesions are appreciated. Cardiovascular: Regular rate and rhythm with a normal S1 and S2. No gallops, murmurs, or rubs. Normal PMI, no JVD. No pulse deficits. Respiratory: Lungs have equal breath sounds bilaterally, clear to auscultation and percussion. No rales, rhonchi or wheezes noted. No increased work of breathing, no retractions or nasal flaring. Abdomen/GI: Soft, non-tender, with normal bowel sounds. No distension or tympany. No guarding or rebound. No evidence of tenderness throughout. Back: No spinal tenderness. No costovertebral tenderness. Full range of motion. Skin: Warm, dry with normal turgor. Normal color with no rashes, no lesions, and no evidence of cellulitis. MS/ Extremity: Pulses equal, no cyanosis. Neurovascular intact. Full, normal range of motion. Neuro: Awake and alert, GCS 15, oriented to person, place, time, and situation. Cranial nerves II-XII grossly intact. Motor strength 5/5 in all extremities. Sensory grossly intact. Cerebellar exam normal. Normal gait. 19:43 ENT: Posterior pharynx: Airway: normal, no evidence of obstruction, Tonsils: bilaterally enlarged, with erythema, with exudate, Uvula: normal, midline, swelling, that is mild, that is moderate, erythema, that is moderate, exudate, that is moderate. Vital Signs: 18:43 BP 109 / 72; Pulse 86; Resp 18; Temp 97.0(TE); Pulse Ox 99% on R/A; Weight 92.99 kg; hj Height 5 ft. 5 in. (165.10 cm); Pain 8/10; 18:43 Body Mass Index 34.11 (92.99 kg, 165.10 cm) hj MDM: 18:59 Patient medically screened. kb 19:43 Data reviewed: vital signs, nurses notes. Data interpreted: Pulse oximetry: on room air kb is 99 %. Interpretation: normal. Counseling: I had a detailed discussion with the patient and/or guardian regarding: the historical points, exam findings, and any diagnostic results supporting the discharge/admit diagnosis, lab results, the need for outpatient follow up, a family practitioner, to return to the emergency department if symptoms worsen or persist or if there are any questions or concerns that arise at home. 02/14 19:03 Order name: Strep; Complete Time: 19:36 la 02/14 19:03 Order name: Flu; Complete Time: 19:36 la1 Administered Medications: 19:52 Drug: Augmentin 875 mg Route: PO; [facility] 19:53 Follow up: Response: Medication administered at discharge. [facility] Disposition: 02/14/18 19:45 Discharged to Home. Impression: Streptococcal pharyngitis. - Condition is Stable. - Discharge Instructions: Strep Throat, [id number]. - Prescriptions for Augmentin 875- 125 mg Oral Tablet - take 1 tablet by ORAL route every 12 hours for 10 days; 20 tablet. - Work release form, Medication Reconciliation Form, Thank You Letter, Antibiotic Education, Prescription Opioid Use form. - Follow up: Emergency Department; When: As needed; Reason: Worsening of condition. Follow up: Private Physician; When: 2 - 3 days; Reason: Recheck today's complaints, Continuance of care, Re-evaluation by your physician. Signatures: Dispatcher [employer] Patricia Hein, REKHA YUNG-Hussein Rain RN RN Jose Silverman RN RN hj Corrections: (The following items were deleted from the chart) 19:53 19:45 02/14/2018 19:45 Discharged to Home. Impression: Streptococcal pharyngitis. la1 Condition is Stable. Forms are Medication Reconciliation Form, Thank You Letter, Antibiotic Education, Prescription Opioid Use. Follow up: Emergency Department; When: As needed; Reason: Worsening of condition. Follow up: Private Physician; When: 2 - 3 days; Reason: Recheck today's complaints, Continuance of care, Re-evaluation by your physician. kb
[2018-02-14] MEDS ORDERED: AMOX/K CLAV 875 MG TAB ONE (19:59)
[2018-02-14 20:38] VITALS: BP 109/72; TEMP 97; O2SAT 99
== END 2018-02-14 19:53 | disposition home or self-care (01) ==
LOC: ER 18:28
DX: J02.0 Streptococcal pharyngitis (principal); E03.9 Hypothyroidism, unspecified
CPT/HCPCS: 87081; 87804; 99283

== ENCOUNTER 2019-08-21 09:20 | Emergency (ER) | payer OTHER ==
[2019-08-21] MEDS ORDERED: KETOROLAC 30 MG/ML INJ ONE (09:53)
--- OUTSIDE RECORDS SUMMARY | 2019-08-21 10:50 | XMS REPORT | Continuity of Care Document ---
:1985 Author Organization [facility] t Address [address] [place] [address] Care Team Providers Name Role Phone Cristobal MEADOWS Attending Clinician Problems This patient has no known problems. Allergies, Adverse Reactions, Alerts This patient has no known allergies or adverse reactions. Medications This patient has no known medications. Procedures This patient has no known procedures. Encounters Start End Encounter Admission Attending Care Care Encounter Source Date/Time Date/Time Type Type Clinicians Facility Department ID 2019-04-14 2019-04-[id number] 00:00:00 00:00:00 Onel Chowdhury [id number] [place] [id number] [facility] [phone] nal 044 Building 2019-04-07 2019-04-07 Office [facility] [id number] 10:39:29 11:27:58 Visit Onel Chowdhury [id number] [place] [id number] [facility] [phone] nal 044 [facility] Results This patient has no known results.
--- NOTE | 2019-08-21 10:51 | RAD REPORT ---
EXAM DESCRIPTION: Laura Single View08/21/2019 10:10 am CLINICAL HISTORY: Congestion COMPARISON: 2017 FINDINGS: The lungs appear clear of acute infiltrate. The heart is normal size IMPRESSION: No acute abnormalities displayed
--- NOTE | 2019-08-21 10:57 | ER ---
Nurse's Notes [facility] Name: Ritu Bonilla Age: 33 yrs Sex: Female : 1985 Arrival Date: 08/21/2019 Time: 09:24 Bed 8 Private MD: Diagnosis: Acute upper respiratory infection, unspecified Presentation: 08/20 09:35 Chief complaint: Patient states: "I THINK I GOT THAT COVID. I GOT A COUGH AND I JUST bp HURT ALL OVER". Coronavirus screen: Proceed with normal triage. Patient reports a cough. Patient denies shortness of breath or difficulty breathing. Patient denies measured and/or subjective temperature greater than 100.4F prior to today's visit. Patient denies travel on a cruise ship or to a country the [facility] currently lists as an affected area. Patient denies contact with known and/or suspected case of COVID-19. Ebola Screen: No symptoms or risks identified at this time. Initial Sepsis Screen: Does the patient meet any 2 criteria? No. Patient's initial sepsis screen is negative. Does the patient have a suspected source of infection? No. Patient's initial sepsis screen is negative. Risk Assessment: Do you want to hurt yourself or someone else? Patient reports no desire to harm self or others. Onset of symptoms was August 21, 2019. 09:35 Method Of Arrival: Ambulatory bp 09:35 Acuity: ROBIN 4 bp Triage Assessment: 09:39 General: Appears in no apparent distress. uncomfortable, Behavior is cooperative, bp appropriate for age, anxious. Pain: Denies pain. EENT: Reports nasal congestion. Neuro: No deficits noted. Cardiovascular: No deficits noted. Respiratory: Reports cough that is. GI: No signs and/or symptoms were reported involving the gastrointestinal system. : No signs and/or symptoms were reported regarding the genitourinary system. Derm: No deficits noted. Musculoskeletal: No deficits noted. 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 - Social history:: Smoking status: Patient reports the use of cigarette tobacco products, unknown amount Patient/guardian denies using alcohol, street drugs, The patient lives with family. - Family history:: not pertinent. Screenin:00 Abuse screen: Denies threats or abuse. Denies injuries from another. Nutritional bp screening: No deficits noted. Tuberculosis screening: No symptoms or risk factors identified. Fall Risk None identified. Assessment: 09:40 General: SEE TRIAGE NOTE. bp 11:00 Reassessment: D/C ON HOLD FOR FLU RESULTS. bp 11:31 Reassessment: PT D/C HOME AMBULATORY, DX WITH ACUTE URI. PT INSTRUCTED TO bp SELF-QUARANTINE UNTIL INFORMED OF NEGATIVE COVID SWAB. Vital Signs: 09:35 BP 108 / 80; Pulse 65; Resp 19; Temp 98; Pulse Ox 100% ; Weight 78.02 kg; Height 5 ft. bp 5 in. (165.10 cm); 11:26 BP 119 / 81; Pulse 81; Resp 16; Temp 98; Pulse Ox 100% ; bp 09:35 Body Mass Index 28.62 (78.02 kg, 165.10 cm) bp ED Course: 09:24 Patient arrived in ED. as 09:25 Cielo Grijalva, RN is Primary Nurse. hb 09:30 Poonam Forman MD is Attending Physician. ma2 09:31 Inderjit Marques, ROGER is Primary Nurse. bp 09:36 Triage completed. bp 09:41 Arm band placed on. bp 10:00 Patient has correct armband on for positive identification. Bed in low position. Call bp light in reach. Side rails up X2. 10:10 CXR XRAY In Process Unspecified. EDMS 11:27 No provider procedures requiring assistance completed. Patient did not have IV access bp during this emergency room visit. Administered Medications: 09:57 Drug: TORadol 60 mg Route: IM; Site: right gluteus; bp 11:13 Follow up: Response: Pain is decreased bp Outcome: 10:56 Discharge ordered by . ma2 11:31 Discharged to home ambulatory. bp 11:31 Condition: stable 11:31 Discharge instructions given to patient, Instructed on discharge instructions, follow up and referral plans. medication usage, Demonstrated understanding of instructions, follow-up care, medications, Prescriptions given X 3. 11:32 Patient left the ED. bp Addendum: 08/23/2019 10:29 Addendum: Other attempted to contact pt regarding negative COVID-19 swab results. Left d m5 message. 14:02 Addendum: Other pt notified of negative swab results. d m5 Signatures: Dispatcher [employer] Laura Ojeda RN RN dm5 Martinez, Amelia as Baxter, Heather, RN RN Inderjit Marques RN RN bp Alzahri, Mohammad, MD MD ma2
--- NOTE | 2019-08-21 10:57 | EDPHYS ---
Physician Documentation [facility] Name: Ritu Bonilla Age: 33 yrs Sex: Female : 1985 Arrival Date: 08/21/2019 Time: 09:24 Bed 8 Private MD: ED Physician Poonam Forman HPI: 08/20 10:05 This 33 yrs old Female presents to ER via Ambulatory with complaints of r/o ma2 covid. 10:05 The patient or guardian reports cough. Onset: The symptoms/episode began/occurred ma2 gradually, 2 day(s) ago. Severity of symptoms: At their worst the symptoms were mild, in the emergency department the symptoms are unchanged. Associated signs and symptoms: Pertinent negatives: ear ache, nausea, sore throat. The patient has not experienced similar symptoms in the past. 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 - Social history:: Smoking status: Patient reports the use of cigarette tobacco products, unknown amount Patient/guardian denies using alcohol, street drugs, The patient lives with family. - Family history:: not pertinent. ROS: 10:05 Constitutional: Negative for fever, chills, and weight loss. ma2 10:05 All other systems are negative. Exam: 10:05 Constitutional: This is a well developed, well nourished patient who is awake, alert, ma2 and in no acute distress. Head/Face: Normocephalic, atraumatic. Eyes: Pupils equal round and reactive to light, extra-ocular motions intact. Lids and lashes normal. Conjunctiva and sclera are non-icteric and not injected. Cornea within normal limits. Periorbital areas with no swelling, redness, or edema. ENT: Nares patent. No nasal discharge, no septal abnormalities noted. Tympanic membranes are normal and external auditory canals are clear. Oropharynx with no redness, swelling, or masses, exudates, or evidence of obstruction, uvula midline. Mucous membranes moist. Neck: Trachea midline, no thyromegaly or masses palpated, and no cervical lymphadenopathy. Supple, full range of motion without nuchal rigidity, or vertebral point tenderness. No Meningismus. Chest/axilla: Normal chest wall appearance and motion. Nontender with no deformity. No lesions are appreciated. Cardiovascular: Regular rate and rhythm with a normal S1 and S2. No gallops, murmurs, or rubs. Normal PMI, no JVD. No pulse deficits. Respiratory: Lungs have equal breath sounds bilaterally, clear to auscultation and percussion. No rales, rhonchi or wheezes noted. No increased work of breathing, no retractions or nasal flaring. Abdomen/GI: Soft, non-tender, with normal bowel sounds. No distension or tympany. No guarding or rebound. No evidence of tenderness throughout. Skin: Warm, dry with normal turgor. Normal color with no rashes, no lesions, and no evidence of cellulitis. MS/ Extremity: Pulses equal, no cyanosis. Neurovascular intact. Full, normal range of motion. Vital Signs: 09:35 BP 108 / 80; Pulse 65; Resp 19; Temp 98; Pulse Ox 100% ; Weight 78.02 kg; Height 5 ft. bp 5 in. (165.10 cm); 11:26 BP 119 / 81; Pulse 81; Resp 16; Temp 98; Pulse Ox 100% ; bp 09:35 Body Mass Index 28.62 (78.02 kg, 165.10 cm) bp MDM: 09:30 Patient medically screened. ma2 10:05 Differential Diagnosis: Bronchitis Influenza Upper Respiratory Infection Sinusitis ma2 Pharyngitis. Data reviewed: vital signs, nurses notes. Counseling: I had a detailed discussion with the patient and/or guardian regarding: the historical points, exam findings, and any diagnostic results supporting the discharge/admit diagnosis, the presence of at least one elevated blood pressure reading (>120/80) during this emergency department visit. Response to treatment: the patient's symptoms have markedly improved after treatment. 08/20 09:41 Order name: COVID-19 [facility] 08/20 09:41 Order name: Flu ma 08/20 09:41 Order name: CXR XRAY; Complete Time: 10:56 [facility] 08/20 09:41 Order name: Strep; Complete Time: 10:29 [facility] 08/20 10:28 Order name: Throat Culture [facility] 08/20 09:41 Order name: Document PUI#; Complete Time: 11:12 [facility] 08/20 09:41 Order name: Droplet/Contact Precautions; Complete Time: 09:58 [facility] 08/20 09:41 Order name: Labs collected and sent; Complete Time: 09:57 [facility] 08/20 09:41 Order name: Notify Health Dept [id number]/ ; Complete Time: 11:12 [facility] 08/20 09:41 Order name: O2 Per Protocol; Complete Time: : Administered Medications: 09:57 Drug: TORadol 60 mg Route: IM; Site: right gluteus; bp 11:13 Follow up: Response: Pain is decreased bp Disposition: 08/21/19 10:56 Discharged to Home. Impression: Acute upper respiratory infection, unspecified. - Condition is Fair. - Discharge Instructions: Upper Respiratory Infection, Adult. - Prescriptions for Diclofenac Sodium 75 mg Oral Tablet Sustained Release - take 1 tablet by ORAL route 2 times per day; 30 tablet. Zithromax Z- Jose 250 mg Oral Tablet - take 1 tablet by ORAL route as directed for 5 days Day 1 - take two (2) tablets one time. Day 2, 3, 4 , 5 take one (1) tablet once daily.; 6 tablet. Medrol (Jose) 4 mg Oral Tablets, Dose Pack - take 1 tablet by ORAL route as directed - follow package instructions; 1 packet. - Medication Reconciliation Form, Thank You Letter, Antibiotic Education, Prescription Opioid Use form. - Follow up: Private Physician; When: Tomorrow; Reason: If symptoms return. Signatures: Dispatcher [employer] Inderjit Diego RN RN bp Alzahri, Mohammad, MD MD ma2 Corrections: (The following items were deleted from the chart) 11:32 10:56 08/21/2019 10:56 Discharged to Home. Impression: Acute upper respiratory bp infection, unspecified. Condition is Fair. Discharge Instructions: Upper Respiratory Infection, Adult. Prescriptions for Diclofenac Sodium 75 mg Oral Tablet Sustained Release - take 1 tablet by ORAL route 2 times per day; 30 tablet, Zithromax Z-Jose 250 mg Oral Tablet - take 1 tablet by ORAL route as directed for 5 days Day 1 - take two (2) tablets one time. Day 2, 3, 4 , 5 take one (1) tablet once daily.; 6 tablet, Medrol (Jose) 4 mg Oral Tablets, Dose Pack - take 1 tablet by ORAL route as directed - follow package instructions; 1 packet. and Forms are Medication Reconciliation Form, Thank You Letter, Antibiotic Education, Prescription Opioid Use. Follow up: Private Physician; When: Tomorrow; Reason: If symptoms return. ma2
[2019-08-21 11:40] VITALS: TEMP 98; O2SAT 100
[2019-08-21 11:41] VITALS: BP 119/81
== END 2019-08-21 11:32 | disposition home or self-care (01) ==
LOC: ER 09:20
DX: J06.9 Acute upper respiratory infection, unspecified (principal); Z20.828 Contact with and (suspected) exposure to other viral communicable diseases; E03.9 Hypothyroidism, unspecified; F17.210 Nicotine dependence, cigarettes, uncomplicated
CPT/HCPCS: 87070; 87081; 87804 ×2; 71045; 96372; 99283; U0001

== ENCOUNTER 2019-10-26 03:11 | Emergency (ER) | payer OTHER ==
--- OUTSIDE RECORDS SUMMARY | 2019-10-26 03:14 | XMS REPORT | Continuity of Care Document ---
:1985 Author Organization [facility] t Address [address] [place] [address] Care Team Providers Name Role Phone Cristobal [...] Clinicians Facility Department ID 2019-04-14 2019-04-14 [id number] 00:00:00 00:00:00 Onel Chowdhury [id number] [place] [id number] Professio [phone] nal 044 Building 2019-04-07 2019-04-07 Office [facility] [id number] 10:39:29 11:27:58 Visit Onel Chowdhury [id number] [place] [id number] Professio [phone] nal 044 [facility] Results This patient has no known results.
[2019-10-26 05:15] LABS: Basophils % 1.1 % (0-1.3); Hematocrit 32.3 % (36.0-45.0); Lymphocytes % 31.3 % (15.3-44.8); MPV 8.5 fL (7.6-11.3); RBC Red Blood Cell Count 4.26 M/uL (3.86-4.86)
[2019-10-26 05:35] LABS: Potassium 3.9 mmol/L (3.5-5.1)
[2019-10-26 06:04] LABS: Urine Blood 3+ (NEG); Urine Glucose NEGATIVE (NEG); Urine Protein 1+ (NEG); Urine Specific Gravity <1.005 (1.005-1.030); Urine pH 5.5 (5.0-7.0)
--- NOTE | 2019-10-26 06:25 | EDPHYS ---
Physician Documentation [facility] Name: Ritu Bonilla Age: 33 yrs Sex: Female : 1985 Arrival Date: 10/26/2019 Time: 03:14 Bed 17 Private MD: GRADY Physician Adolph Sweeney HPI: 10/25 04:23 This 33 yrs old Female presents to ER via Ambulatory with complaints of mh7 Vaginal Bleeding, Nausea. 04:23 The patient presents with vaginal bleeding that is moderate, with clots. Onset: The mh7 symptoms/episode began/occurred today. Modifying factors: The symptoms are alleviated by nothing, the symptoms are aggravated by nothing. Associated signs and symptoms: Pertinent positives: nausea, Pertinent negatives: constipation, cramping, diarrhea, dyspareunia, dysuria, fever, hematuria, urinary frequency, vaginal discharge, vomiting. Severity of symptoms: At their worst the symptoms were moderate, earlier today, in the emergency department the symptoms have improved, markedly. 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 - Social history:: Smoking status: Patient reports the use of cigarette tobacco products, denies chronic smoking, but will smoke occasionally. ROS: 04:23 Constitutional: Negative for fever, chills, and weight loss, Eyes: Negative for injury, mh7 pain, redness, and discharge, ENT: Negative for injury, pain, and discharge, Neck: Negative for injury, pain, and swelling, Cardiovascular: Negative for chest pain, palpitations, and edema, Respiratory: Negative for shortness of breath, cough, wheezing, and pleuritic chest pain, Back: Negative for injury and pain, MS/Extremity: Negative for injury and deformity, Skin: Negative for injury, rash, and discoloration, Neuro: Negative for headache, weakness, numbness, tingling, and seizure, Psych: Negative for depression, anxiety, suicide ideation, homicidal ideation, and hallucinations, Allergy/Immunology: Negative for hives, rash, and allergies, Endocrine: Negative for neck swelling, polydipsia, polyuria, polyphagia, and marked weight changes, Hematologic/Lymphatic: Negative for swollen nodes, abnormal bleeding, and unusual bruising. Exam: 04:23 Constitutional: This is a well developed, well nourished patient who is awake, alert, mh7 and in no acute distress. Head/Face: Normocephalic, atraumatic. Eyes: Pupils equal round and reactive to light, extra-ocular motions intact. Lids and lashes normal. Conjunctiva and sclera are non-icteric and not injected. Cornea within normal limits. Periorbital areas with no swelling, redness, or edema. Neck: Trachea midline, no thyromegaly or masses palpated, and no cervical lymphadenopathy. Supple, full range of motion without nuchal rigidity, or vertebral point tenderness. No Meningismus. Chest/axilla: Normal chest wall appearance and motion. Nontender with no deformity. No lesions are appreciated. Cardiovascular: Regular rate and rhythm with a normal S1 and S2. No gallops, murmurs, or rubs. Normal PMI, no JVD. No pulse deficits. Respiratory: Lungs have equal breath sounds bilaterally, clear to auscultation and percussion. No rales, rhonchi or wheezes noted. No increased work of breathing, no retractions or nasal flaring. Abdomen/GI: Soft, non-tender, with normal bowel sounds. No distension or tympany. No guarding or rebound. No evidence of tenderness throughout. Back: No spinal tenderness. No costovertebral tenderness. Full range of motion. Skin: Warm, dry with normal turgor. Normal color with no rashes, no lesions, and no evidence of cellulitis. MS/ Extremity: Pulses equal, no cyanosis. Neurovascular intact. Full, normal range of motion. Neuro: Awake and alert, GCS 15, oriented to person, place, time, and situation. Cranial nerves II-XII grossly intact. Motor strength 5/5 in all extremities. Sensory grossly intact. Cerebellar exam normal. Normal gait. Psych: Awake, alert, with orientation to person, place and time. Behavior, mood, and affect are within normal limits. 04:45 : CVA tenderness, is absent, Pelvic Exam: External exam: is normal, Speculum exam: mh7 mild bleeding, blood clots in vaginal vault, no cervicitis, os that is closed, bimanual exam reveals no cervical motion tenderness, os that is closed, normal sized uterus, no uterine tenderness, no adnexa tenderness or masses bilaterally, discharge, is not appreciated, the nurse was present for the exam, Gravid exam: Bladder: is normal, Rectal exam: is refused by patient or guardian. Vital Signs: 03:33 BP 136 / 85; Resp 18 S; Temp 98.9; Pulse Ox 100% on R/A; Weight 76.2 kg; Height 5 ft. 5 iw in. (165.10 cm); Pain 3/10; 04:00 Pulse 112; rv 05:00 BP 131 / 86; Pulse 96; Resp 16; Pulse Ox 100% on R/A; rv 06:00 BP 128 / 76; Pulse 89; Resp 18; Pulse Ox 99% ; rv 03:33 Body Mass Index 27.96 (76.20 kg, 165.10 cm) iw MDM: 03:41 Patient medically screened. mh7 06:22 Differential diagnosis: cervicitis, dysmenorrhea, ectopic , menometrorrhagia, mh7 menorrhea, urinary tract infection. Data reviewed: vital signs, nurses notes, lab test result(s), CBC, electrolytes, urinalysis. Data interpreted: Pulse oximetry: on room air is 100 %. Interpretation: normal. Counseling: I had a detailed discussion with the patient and/or guardian regarding: the historical points, exam findings, and any diagnostic results supporting the discharge/admit diagnosis, the presence of at least one elevated blood pressure reading (>120/80) during this emergency department visit, lab results, the need for outpatient follow up, an OB/Gyne specialist, to return to the emergency department if symptoms worsen or persist or if there are any questions or concerns that arise at home. Response to treatment: the patient's symptoms have resolved after treatment, the patient's blood pressure is in an acceptable range, mental status has returned to baseline, the patient no longer shows bradycardia, the patient is not short of breath, the patient is not tachycardic, the patient's pain is gone, the patient's temperature has normalized. 10/25 03:47 Order name: Urine Dipstick--Ancillary (enter results) hi5 10/25 04:45 Order name: Abo/rh Typing [facility] 10/25 04:45 Order name: Basic Metabolic Panel; Complete Time: 05:56 [facility] 10/25 04:45 Order name: CBC with Diff; Complete Time: 05:29 [facility] 10/25 04:45 Order name: IV Saline Lock; Complete Time: 05:19 [facility] 10/25 04:45 Order name: Test, Serum; Complete Time: 05:56 [facility] 10/25 04:45 Order name: Labs collected and sent; Complete Time: 05:03 [facility] 10/25 04:45 Order name: NPO; Complete Time: 05:02 [facility] 10/25 04:45 Order name: Urine Dipstick-Ancillary (obtain specimen); Complete Time: 05:02 [facility] Administered Medications: No medications were administered Disposition: 06:51 Co-signature as Attending Physician, Adolph Sweeney MD. [facility] Disposition: 10/26/19 06:24 Discharged to Home. Impression: Vaginal Bleeding, UTI. - Condition is Stable. - Discharge Instructions: Urinary Tract Infection, Adult, [id number], Menorrhagia, [id number]. - Prescriptions for Keflex 500 mg Oral Capsule - take 1 capsule by ORAL route every 12 hours for 7 days; 14 capsule. - Medication Reconciliation Form, Thank You Letter, Antibiotic Education, Prescription Opioid Use form. - Follow up: Private Physician; When: 1 - 2 days; Reason: Worsening of condition, Recheck today's complaints, Continuance of care, Re-evaluation by your physician. Follow up: Ilda Raymond MD; When: 1 - 2 days; Reason: Worsening of condition, Recheck today's complaints. - Problem is new. - Symptoms have improved. Signatures: Dispatcher [employer] Shivani Arana RN RN iw Vicente, Ronaldo, RN RN rv Holmes, Maurice, MD MD [facility] Corrections: (The following items were deleted from the chart) 06:29 06:24 10/26/2019 06:24 Discharged to Home. Impression: Vaginal Bleeding; UTI. Condition rv is Stable. Forms are Medication Reconciliation Form, Thank You Letter, Antibiotic Education, Prescription Opioid Use. Follow up: Private Physician; When: 1 - 2 days; Reason: Worsening of condition, Recheck today's complaints, Continuance of care, Re-evaluation by your physician. Follow up: Ilda Raymond; When: 1 - 2 days; Reason: Worsening of condition, Recheck today's complaints. Problem is new. Symptoms have improved. mh7
--- NOTE | 2019-10-26 06:25 | ER ---
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 Coronavirus screen: At this time, the client does not indicate any symptoms associated with coronavirus-19. Ebola Screen: Patient negative for fever greater than or equal to 101.5 degrees Fahrenheit, and additional compatible Ebola Virus Disease symptoms Patient denies exposure to infectious person. Patient denies travel to an Ebola-affected area in the 21 days before illness onset. No symptoms or risks identified at this time. Initial Sepsis Screen: Does the patient meet any 2 criteria? No. Patient's initial sepsis screen is negative. Does the patient have a suspected source of infection? No. Patient's initial sepsis screen is negative. Risk Assessment: Do you want to hurt yourself or someone else? Patient reports no desire to harm self or others. Onset of symptoms was October 26, 2019. 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 - Social history:: Smoking status: Patient reports the use of cigarette tobacco products, denies chronic smoking, but will smoke occasionally. Screenin:57 Abuse screen: Denies threats or abuse. Denies injuries from another. Nutritional rv screening: No deficits noted. Tuberculosis screening: No symptoms or risk factors identified. Fall Risk None identified. Assessment: 03:56 General: Appears uncomfortable, Behavior is cooperative. Pain: Complains of pain in rv abdomen Quality of pain is described as crampy. Neuro: Level of Consciousness is awake, alert, obeys commands, Oriented to person, place, time, situation. Cardiovascular: Patient's skin is warm and dry. Respiratory: Airway is patent Breath sounds are clear bilaterally. : Vaginal discharge is bloody, Reports cramping, discharge, from vagina that is bloody, pain. : Reports vaginal bleeding that is bright red, with clots. Derm: Skin is intact. 04:00 Reassessment: patient prepared for Pelvic Exam. awaiting for Dr Sweeney. rv 06:26 Reassessment: PATIENT IS COMFORTABLE. PAIN IS ON AND OFF, TOLERABLE. VITAL SIGNS rv NORMAL. DR SWEENEY EXPLAINED THE TEST RESULTS TO THE PATIENT. Vital Signs: 03:33 BP 136 / 85; Resp 18 S; Temp 98.9; Pulse Ox 100% on R/A; Weight 76.2 kg; Height 5 ft. 5 iw in. (165.10 cm); Pain 3/10; 04:00 Pulse 112; rv 05:00 BP 131 / 86; Pulse 96; Resp 16; Pulse Ox 100% on R/A; rv 06:00 BP 128 / 76; Pulse 89; Resp 18; Pulse Ox 99% ; rv 03:33 Body Mass Index 27.96 (76.20 kg, 165.10 cm) ED Course: 03:14 Patient arrived in ED. es 03:20 Adolph Sweeney MD is Attending Physician. mh7 03:30 Triage completed. iw 03:30 Arm band placed on. iw 03:56 Bharat Jose, RN is Primary Nurse. rv 03:57 Patient has correct armband on for positive identification. Pulse ox on. NIBP on. rv 04:52 Assist provider with pelvic exam: Set up pelvic tray. Performed by Adolph Sweeney MD Patient tolerated well. 05:00 Initial lab(s) drawn, by me, sent to lab. Inserted saline lock: 20 gauge in left rv antecubital area, using aseptic technique. Blood collected. 06:24 Ilda Raymond MD is Referral Physician. [facility] 06:25 IV discontinued, intact, bleeding controlled, No redness/swelling at site. Pressure rv dressing applied. Administered Medications: No medications were administered Outcome: 06:24 Discharge ordered by . Leeann 06:25 Discharged to home ambulatory. rv 06:25 Condition: good 06:27 Discharge instructions given to patient, Instructed on discharge instructions, follow rv up and referral plans. medication usage, Demonstrated understanding of instructions, follow-up care, medications, Prescriptions given X 1. 06:29 Patient left the ED. rv Signatures: Valery Crane Irene, RN ROGER iw Bharat Jose RN RN Adolph Dash MD MD [facility]
[2019-10-30 22:43] VITALS: TEMP 98.9
[2019-10-30 22:46] VITALS: BP 128/76; O2SAT 99
== END 2019-10-26 06:29 | disposition home or self-care (01) ==
LOC: ER 03:11
DX: N39.0 Urinary tract infection, site not specified (principal); E03.9 Hypothyroidism, unspecified; Z72.0 Tobacco use
CPT/HCPCS: 36415; 80048; 81003; 84703; 85025; 86900; 86901; 99284

== ENCOUNTER 2024-12-03 14:32 | Emergency (ER) | payer OTHER ==
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
[2024-12-03] MEDS ORDERED: HYDROCODONE/APAP 5/325 MG TAB ONE (16:05)
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
[2024-12-03] MEDS ORDERED: IBUPROFEN 400 MG TAB ONE (17:27)
[2024-12-03 17:51] VITALS: BP 116/89; TEMP 98; O2SAT 98
== END 2024-12-03 17:31 | disposition home or self-care (01) ==
LOC: ER 14:32
DX: S13.4XXA Sprain of ligaments of cervical spine, initial encounter (principal); S23.3XXA Sprain of ligaments of thoracic spine, initial encounter; S33.5XXA Sprain of ligaments of lumbar spine, initial encounter; V49.49XA Driver injured in collision with other motor vehicles in traffic accident, initial encounter
CPT/HCPCS: 70450; 72125; 72128; 99283